=== PATIENT | male | born 1955 ===

== ENCOUNTER 2023-09-10 10:47 | Emergency (ER) | payer MEDICARE, BC ==
[2023-09-10] MEDS: Labetalol 100 MG/20 ML MDV IVPUSH ONE (11:32)
[2023-09-10 11:41] LABS: BASOPHILS ABSOLUTE AUTO 0.15 K/uL (0.00-0.20); BASOPHILS PERCENT AUTO 1.5 % (0.0-1.0); HEMATOCRIT 49.9 % (42.0-52.0); HEMOGLOBIN 17.1 g/dL (14.0-18.0); IMMATURE GRAN ABSOLUTE AUTO 0.04 K/uL (0.00-0.05); IMMATURE GRAN PERCENT AUTO 0.4 % (0.0-0.4); LYMPHOCYTES ABSOLUTE AUTO 1.08 K/uL (1.00-4.80); LYMPHOCYTES PERCENT AUTO 10.7 % (24.0-44.0); MEAN CORPUSCULAR HEMOGLOBIN 29.7 pg (28.0-32.0); MEAN CORPUSCULAR HGB CONC 34.3 g/dL (32.0-36.0); MEAN CORPUSCULAR VOLUME 86.6 fL (83.0-99.0); MEAN PLATELET VOLUME 11.2 fL (9.4-12.4); MONOCYTES ABSOLUTE AUTO 0.61 K/uL (0.00-0.80); NEUTROPHILS ABSOLUTE AUTO 8.13 K/uL (1.80-7.70); NEUTROPHILS PERCENT AUTO 80.4 % (41.0-71.0); PLATELET COUNT,PLT 227 K/uL (150-400); RED BLOOD CELL COUNT 5.76 M/uL (4.52-5.90); WHITE BLOOD CELL COUNT,WBC 10.11 K/uL (3.9-11.3)
[2023-09-10 12:21] LABS: A/G RATIO 0.9 (0.9-1.6); BILIRUBIN TOTAL 2.5 mg/dL (0.2-1.0); CALCIUM 9.6 mg/dL (8.5-10.1); CREATININE 1.4 mg/dL (0.8-1.3); EST CRCL DRUG DOSING (CG) 60.35 mL/min; POTASSIUM,K 3.8 mmol/L (3.5-5.1); PROTEIN TOTAL,TP 8.3 g/dL (6.4-8.2)
[2023-09-10] MEDS: Heparin Sodium/0.45% NaCl 500 ML IV SCH (13:15)
[2023-09-10] MEDS: Heparin Sodium 5,000 Units/ML Vial IVPUSH ONE (13:15)
[2023-09-10] MEDS: Aspirin 81 MG Tab.Chew PO ONE (13:15)
[2023-09-10] MEDS: hydrALAZINE 20 MG/ML SDV IVPUSH ONE (13:44)
== END 2023-09-10 14:30 ==
LOC: MW.ED 10:47
DX: I24.9 Acute ischemic heart disease, unspecified (principal)
CPT/HCPCS: 36415; 80053; 84484; 85025; 85730; 96365; 96375; 99284; A9270; J0360; J1644; J1921; 99285

== ENCOUNTER 2023-09-13 00:15 | Emergency (ER) | payer MEDICARE, BC ==
[2023-09-13 00:49] LABS: APPEARANCE,URINE CLEAR; BILIRUBIN,URINE NEGATIVE (NEGATIVE); COLOR,URINE YELLOW; GLUCOSE,URINE NEGATIVE (NEGATIVE); KETONES,URINE NEGATIVE (NEGATIVE); LEUKOCYTE ESTERASE,URINE NEGATIVE (NEGATIVE); NITRITE,URINE NEGATIVE (NEGATIVE); OCCULT BLOOD,URINE NEGATIVE (NEGATIVE); PROTEIN,URINE 30 mg/dL (NEGATIVE); UROBILINOGEN,URINE 0.2 EU/dL (<2.0)
[2023-09-13 01:01] LABS: BACTERIA,URINE FEW (NEGATIVE); EPITHELIAL CELLS,URINE NOT SEEN (NONE-FEW); RBC,URINE NONE SEEN (0-2/HPF); WBC,URINE NONE SEEN (0-5/HPF)
[2023-09-13 01:42] LABS: CALCIUM 8.7 mg/dL (8.5-10.1); CARBON DIOXIDE,CO2 22.9 mmol/L (21.0-32.0); CREATININE 1.3 mg/dL (0.8-1.3); EST CRCL DRUG DOSING (CG) 64.99 mL/min; POTASSIUM,K 4.4 mmol/L (3.5-5.1)
== END 2023-09-13 02:11 | disposition home or self-care (01) ==
LOC: MW.ED 00:15
DX: N13.9 Obstructive and reflux uropathy, unspecified (principal); Z75.8 Other problems related to medical facilities and other health care; Z79.82 Long term (current) use of aspirin; Z79.899 Other long term (current) drug therapy
CPT/HCPCS: 36415; 51702; 80048; 81001; 99283

== ENCOUNTER 2023-09-17 14:01 | Emergency (ER) | payer MEDICARE, BC ==
[2023-09-17] MEDS: Sodium Chloride 0.9% 1,000 ML IV STA (15:10)
[2023-09-17 15:31] LABS: BASOPHILS ABSOLUTE AUTO 0.13 K/uL (0.00-0.20); BASOPHILS PERCENT AUTO 1.2 % (0.0-1.0); EOSINOPHILS ABSOLUTE AUTO 0.17 K/uL (0.00-0.45); EOSINOPHILS PERCENT AUTO 1.6 % (0.0-6.0); HEMOGLOBIN 16.7 g/dL (14.0-18.0); IMMATURE GRAN ABSOLUTE AUTO 0.05 K/uL (0.00-0.05); IMMATURE GRAN PERCENT AUTO 0.5 % (0.0-0.4); LYMPHOCYTES ABSOLUTE AUTO 1.08 K/uL (1.00-4.80); MEAN CORPUSCULAR HGB CONC 34.8 g/dL (32.0-36.0); MEAN CORPUSCULAR VOLUME 86.2 fL (83.0-99.0); MEAN PLATELET VOLUME 10.9 fL (9.4-12.4); MONOCYTES ABSOLUTE AUTO 0.76 K/uL (0.00-0.80); NEUTROPHILS ABSOLUTE AUTO 8.62 K/uL (1.80-7.70); NEUTROPHILS PERCENT AUTO 79.7 % (41.0-71.0); PLATELET COUNT,PLT 252 K/uL (150-400); RED BLOOD CELL COUNT 5.57 M/uL (4.52-5.90); WHITE BLOOD CELL COUNT,WBC 10.81 K/uL (3.9-11.3)
[2023-09-17 15:46] LABS: INR 1.31 (0.86-1.11); PTT,PARTIAL THROMBOPLSTIN TIME 31.3 SEC (23.9-30.7)
[2023-09-17 15:53] LABS: A/G RATIO 0.8 (0.9-1.6); ALBUMIN 3.5 g/dL (3.4-5.0); BILIRUBIN TOTAL 1.9 mg/dL (0.2-1.0); CALCIUM 8.9 mg/dL (8.5-10.1); CARBON DIOXIDE,CO2 23.1 mmol/L (21.0-32.0); CREATININE 1.3 mg/dL (0.8-1.3); EST CRCL DRUG DOSING (CG) 64.99 mL/min; POTASSIUM,K 4.3 mmol/L (3.5-5.1); PROTEIN TOTAL,TP 7.8 g/dL (6.4-8.2)
[2023-09-17] MEDS: Iopamidol 755 MG/ML 500 ML Multipack Bottle IVPUSH STA (16:49)
[2023-09-17 18:48] LABS: HEMATOCRIT 45.1 % (42.0-52.0); HEMOGLOBIN 15.9 g/dL (14.0-18.0)
== END 2023-09-17 21:15 ==
LOC: MW.ED 14:01
DX: R31.0 Gross hematuria (principal); R33.9 Retention of urine, unspecified; I10 Essential (primary) hypertension; Z75.8 Other problems related to medical facilities and other health care; Z79.82 Long term (current) use of aspirin; Z79.899 Other long term (current) drug therapy
CPT/HCPCS: 36415; 51700; 74177; 80053; 83690; 85014; 85018; 85025; 85610; 85730; 86850; 86900; 86901; 96361; 96374; 99285; J3360; J7030; Q9967